=== PATIENT | male | born 1975 | race Two or more races ===

== ENCOUNTER 2024-07-02 15:56 | Emergency (ER) | payer OTHER ==
[~2024-07-02] VITALS: Ht 177.8 cm; Wt 86.0 kg
--- NOTE | 2024-07-02 16:27 | DVH ---
Exam: CT CT AB PEL WO CON-NO ORAL OR IV History: cp Comparison Study: None Technique: Multidetector spiral CT of the abdomen was performed from lung bases to pubic symphysis. Imaging was performed without IV contrast. Axial, coronal and sagittal multiplanar reformats were ob tained from the axial data set by the technologist. Radiation Dose : 1. Abdomen/Pelvis: CTDIvol 13.6 mGy, DLP 742.3 mGy*cm. Findings: Evaluation of solid organs is limited due to lack of intravenous contrast use. Lung Bases: No acute or significant lung base finding. Normal heart size. No pleural or pericardial effusion. Liver: The liver is normal in size. No focal lesions. Gallbladder and Biliary Tree: Unremarkable Spleen: Unremarkable Pancreas: The pancreas is grossly normal in appearance. Adrenal Glands: Unremarkable Kidneys: Kidneys are grossly normal without calculi or hydronephrosis. Bladder: Grossly unremarkable for degree of distention. Bowel: The stomach is grossly normal in appearance. Small bowel and colon are normal in caliber and d istribution. Normal appendix is visualized in the right lower quadrant without findings of appendici tis. Ascites: Absent Lymphadenopathy: No mesenteric, retroperitoneal or periportal lymphadenopathy. Abdominal Wall and Mesentery: Unremarkable. Vasculature: The visualized abdominal aorta is normal in size and caliber. Evaluation of abdominal a nd pelvic vessels is limited due to lack of intravenous contrast. Pelvic Organs: Unremarkable Musculoskeletal: No aggressive focal bony lesions, acute fractures or dislocation. IMPRESSION: 1. No acute abdominal or pelvic findings. Radiation optimization: All CT scans at this facility use at least one of these dose optimization talha hniques: automated exposure control mA and/or kV adjustment per patient size (includes targeted exam s where dose is matched to clinical indication) or iterative reconstruction.
--- NOTE | 2024-07-02 16:51 | DVH ---
CHEST RADIOGRAPH Indication: cp Technique: Single frontal view of the chest was obtained COMPARISON: None FINDINGS: Lines and Tubes: None Lungs: Clear Pleura: No effusion. No pneumothorax. Cardiomediastinal contours: Unremarkable Bones: Unremarkable IMPRESSION: 1. No acute disease.
[2024-07-02 17:18] LABS: Basophils # (auto) 0 10 ^3/uL (0-0.2); Basophils % (auto) 0.9 % (0.0-2.0); Eosinophils # (auto) 0.2 10 ^3/uL (0-0.8); Eosinophils % (auto) 4.2 % (0.0-7.0); Hematocrit 43.6 % (41.0-53.0); Hemoglobin 14.9 g/dL (13.5-17.5); Lymphocytes # (auto) 1.8 10 ^3/uL (0.4-5.4); Lymphocytes % (auto) 37.5 % (10.0-50.0); Mean Corpuscular Hemoglobin 33.3 pg (28.0-32.0); Mean Corpuscular Hgb Conc. 34.1 g/dL (32.0-36.0); Mean Corpuscular Volume 97.5 fL (80.0-100.0); Monocytes # (auto) 0.4 10 ^3/uL (0-1.3); Monocytes % (auto) 7.6 % (0.0-12.0); Neutrophils # (auto) 2.3 10 ^3/uL (1.6-8.6); Neutrophils % (auto) 49.8 % (37.0-80.0); Nucleated Red Blood Cells % 0.1 %; Platelet Count (auto) 200 10^3/uL (140-450); Red Blood Cells 4.47 10^6/uL (4.5-5.90); Red Cell Distribution Width 13.6 % (11.8-14.3); White Blood Cell 4.7 10^3/uL (4.4-10.8)
[2024-07-02 17:37] LABS: Alanine Aminotransferase 15 U/L (7-40); Albumin 4.7 g/dL (3.2-4.8); Alkaline Phosphatase 58 U/L (46-116); Anion Gap 6 (5-15); Blood Urea Nitrogen 10 mg/dL (9-23); Calcium 9.7 mg/dL (8.7-10.4); Carbon Dioxide 27 mmol/L (20-31); Glucose 88 mg/dL (74-106); Lipase 46 U/L (12-53); Potassium 4.3 mmol/L (3.5-5.1); Sodium 140 mmol/L (136-145)
[2024-07-02 17:38] LABS: Urine Bacteria None Seen /hpf (None Seen)
[2024-07-02 17:38] LABS: Bilirubin, Total 0.4 mg/dL (0.2-1.0)
[2024-07-02 17:50] LABS: Aspartate Aminotransferase 13 U/L (13-40); Chloride 107 mmol/L (98-107)
[2024-07-02 18:02] LABS: Urine Blood Negative /uL (Negative); Urine Clarity Clear (Clear); Urine Color Light-Yellow (Yellow); Urine Mucus FEW (None Seen); Urine Protein, UAD Negative (Negative); Urine Squamous Epithelial Cell None Seen /hpf (<5); Urine Urobilinogen Normal (Negative); Urine WBC 1 /hpf (0 - 3)
--- NOTE | 2024-07-02 18:32 | ED.PDOC ---
History of Present Illness HPI Comments 49 y/o M, with a Hx of HTN, presents with c/o chest, groin, testicular, and abdominal pain, today. Patient endorses on unprovoked onset of intermittent, tightening and pressure-like sternal chest pain for the past 2x days. Patient also reports additional onset, yesterday, or bilateral groin pain that radiates to his testicles and lower abdomen area. He denies any recent trauma, strenuous activities, sick contact, or other additional relevant or pertinent Hx. Patient reports no shortness of breath, palpitations, urinary symptoms, nausea, vomiting, or other associated symptoms or modifiers at this time. Chief Complaint: Chest Pain Time Seen by MD: 16:00 Primary Care Provider: [facility] Reviewed Notes: Nurses Notes, Medications, Allergies Allergies: Coded Allergies: NO KNOWN ALLERGIES (Unverified , 07/02/24) Information Source: Patient Mode of Arrival: Ambulatory Severity: Moderate Timing: Days Duration: Since onset Prehospital treatment: None Past Medical History PAST MEDICAL HISTORY: HTN Surgical History: Denies all surgeries Family History Family History: Unknown Social History Smoker: Non-Smoker Alcohol: Denies ETOH Use Drugs: Marijuana Lives In: Home Cardiovascular: reports: chest pain Gastrointestinal: reports: abdominal pain Genitourinary: reports: pain (groin), testicle pain Physical Exam General Appearance: No Apparent Distress, Normal HEENT: Normal ENT Inspection, Pharynx Normal, TMs Normal Neck: Full Range of Motion, Non-Tender, Normal, Normal Inspection Respiratory: Chest Non-Tender, Lungs Clear, No Accessory Muscle Use, No Respiratory Distress, Normal Breath Sounds Cardiovascular: No Edema, No JVD, No Murmur, No Gallop, Normal Peripheral Pulses, Regular Rate/Rhythm Breast Exam: Deferred Gastrointestinal: No Organomegaly, Non Tender, No Pulsatile Mass, Normal Bowel Sounds, Soft Genitalia: Deferred Pelvic: Deferred Rectal: Deferred Extremities: No calf tenderness, Normal capillary refill, Normal inspection, Normal range of motion, Non-tender, No pedal edema Musculoskeletal : Apperance: Normal Neurologic: Alert, manager social II-XII nml as Tested, No Motor Deficits, Normal Affect, Normal Mood, No Sensory Deficits Cerebellar Function: Normal Reflexes: Normal Skin: Dry, Normal Color, Warm Lymphatic: No Adenopathy Was a procedure done? Was a procedure done?: No Differential Dx Considerations may include: ID, ACS, costochondritis, pericarditis, pleural effusion, musculoskeletal pain, hydrocele, variocele X-Ray, Labs, Meds, VS Vital Signs Date Time Temp Pulse Resp B/P (MAP) Pulse Ox O2 Delivery O2 Flow Rate FiO2 07/02/24 16:00 98.0 69 18 171/106 (127) 97 178/104 (128) Lab Test 07/02/24 16:51 07/02/24 16:08 Range/Units White Blood Count 4.7 4.4-10.8 10^3/uL Red Blood Count 4.47 L 4.5-5.90 10^6/uL Hemoglobin 14.9 13.5-17.5 g/dL Hematocrit 43.6 41.0-53.0 % Mean Corpuscular Volume 97.5 80.0-100.0 fL Mean Corpuscular Hemoglobin 33.3 H 28.0-32.0 pg Mean Corpuscular Hemoglobin Concent 34.1 32.0-36.0 g/dL Red Cell Distribution Width 13.6 11.8-14.3 % Platelet Count 200 140-450 10^3/uL Mean Platelet Volume 8.8 6.9-10.8 fL Neutrophils (%) (Auto) 49.8 37.0-80.0 % Lymphocytes (%) (Auto) 37.5 10.0-50.0 % Monocytes (%) (Auto) 7.6 0.0-12.0 % Eosinophils (%) (Auto) 4.2 0.0-7.0 % Basophils (%) (Auto) 0.9 0.0-2.0 % Neutrophils # (Auto) 2.3 1.6-8.6 10 ^3/uL Lymphocytes # (Auto) 1.8 0.4-5.4 10 ^3/uL Monocytes # (Auto) 0.4 0-1.3 10 ^3/uL Eosinophils # (Auto) 0.2 0-0.8 10 ^3/uL Basophils # (Auto) 0 0-0.2 10 ^3/uL Nucleated Red Blood Cells 0.1 % Sodium Level 140 136-145 mmol/L Potassium Level 4.3 3.5-5.1 mmol/L Chloride Level 107 98-107 mmol/L Carbon Dioxide Level 27 20-31 mmol/L Anion Gap 6 5-15 Blood Urea Nitrogen 10 9-23 mg/dL Creatinine 0.83 0.700-1.30 mg/dL Glomerular Filtration Rate Calc 109 >90 mL/min BUN/Creatinine Ratio 12.0 10.0-20.0 Serum Glucose 88 74-106 mg/dL Calcium Level 9.7 8.7-10.4 mg/dL Total Bilirubin 0.4 0.2-1.0 mg/dL Aspartate Amino Transferase (AST) 13 13-40 U/L Alanine Aminotransferase (ALT) 15 7-40 U/L Alkaline Phosphatase 58 46-116 U/L Troponin I High Sensitivity 3 L </=54 ng/L B-Type Natriuretic Peptide 26.29 0-100 pg/mL Total Protein 7.0 5.7-8.2 g/dL Albumin 4.7 3.2-4.8 g/dL Lipase 46 12-53 U/L Urine Color Light-yellow Yellow Urine Clarity Clear Clear Urine pH 6.0 5.0-9.0 Urine Specific [place] 1.010 1.001-1.035 Urine Protein Negative Negative Urine Ketones Negative Negative Urine Blood Negative Negative /uL Urine Nitrite Negative Negative Urine Bilirubin Negative Negative Urine Urobilinogen Normal Negative mg/dL Urine Leukocyte Esterase Negative Negative /uL Urine RBC 1 0 - 3 /hpf Urine WBC 1 0 - 3 /hpf Urine Squamous Epithelial Cells None seen <5 /hpf Urine Bacteria None seen None Seen /hpf Urine Mucus Few None Seen Urine Glucose Normal Normal mg/dL [place] [id number] DIAGNOSTIC IMAGING Diagnostic Imaging Report : [id number] Signed PATIENT: PENG FINNEY ACCT: [id number] UNIT: [id number] : 1975 LOC: ER ROOM / BED: / AGE / SEX: 49 / M ADM STATUS: REG ER SERVICE [id number] ORDERING PHYSICIAN: ROSELIA ZAVALA PROCEDURE(s): CXR1 - CHEST XRAY 1 VIEW REASON: cp ORDER NUMBER(s): [id number], ACCESSION NUMBER(s): [id number] CHEST RADIOGRAPH Indication: cp Technique: Single frontal view of the chest was obtained COMPARISON: None FINDINGS: Lines and Tubes: None Lungs: Clear Pleura: No effusion. No pneumothorax. Cardiomediastinal contours: Unremarkable Bones: Unremarkable IMPRESSION: 1. No acute disease. ATED BY: GUERITA NAJERA MD DICTATED DATE/TIME: 07/02/241647 SIGNED BY: GUERITA NAJERA MD SIGNED DATE/TIME: 07/02/241647 CC: [place] [id number] Ph: [phone] DIAGNOSTIC IMAGING Diagnostic Imaging Report : [id number] Signed PATIENT: PENG FINNEY ACCT: [id number] UNIT: [id number] : 1975 LOC: ER ROOM / BED: / AGE / SEX: 49 / M ADM STATUS: REG ER SERVICE 06 ORDERING PHYSICIAN: ROSELIA ZAVALA PROCEDURE(s): ABPL - CT AB PEL WO CON-NO ORAL OR IV REASON: cp ORDER NUMBER(s): [id number], ACCESSION NUMBER(s): [id number] Exam: CT CT AB PEL WO CON-NO ORAL OR IV History: cp Comparison Study: None Technique: Multidetector spiral CT of the abdomen was performed from lung bases to pubic symphysis. Imaging was performed without IV contrast. Axial, coronal and sagittal multiplanar reformats were obtained from the axial data set by the technologist. Radiation Dose : 1. Abdomen/Pelvis: CTDIvol 13.6 mGy, DLP 742.3 mGy*cm. Findings: Evaluation of solid organs is limited due to lack of intravenous contrast use. Lung Bases: No acute or significant lung base finding. Normal heart size. No pleural or pericardial effusion. Liver: The liver is normal in size. No focal lesions. Gallbladder and Biliary Tree: Unremarkable Spleen: Unremarkable Pancreas: The pancreas is grossly normal in appearance. Adrenal Glands: Unremarkable Kidneys: Kidneys are grossly normal without calculi or hydronephrosis. Bladder: Grossly unremarkable for degree of distention. Bowel: The stomach is grossly normal in appearance. Small bowel and colon are normal in caliber and distribution. Normal appendix is visualized in the right lower quadrant without findings of appendicitis. Ascites: Absent Lymphadenopathy: No mesenteric, retroperitoneal or periportal lymphadenopathy. Abdominal Wall and Mesentery: Unremarkable. Vasculature: The visualized abdominal aorta is normal in size and caliber. Evaluation of abdominal and pelvic vessels is limited due to lack of intravenous contrast. Pelvic Organs: Unremarkable Musculoskeletal: No aggressive focal bony lesions, acute fractures or dislocation. IMPRESSION: 1. No acute abdominal or pelvic findings. Radiation optimization: All CT scans at this facility use at least one of these dose optimization techniques: automated exposure control mA and/or kV adjustment per patient size (includes targeted exams where dose is matched to clinical indication) or iterative reconstruction. ATED BY: GUERITA NAJERA MD DICTATED DATE/TIME: 07/02/241624 SIGNED BY: GUERITA NAJERA MD SIGNED DATE/TIME: 07/02/241624 CC: X-Ray, Labs, Meds, VS Comment Imaging: X-rays and CT scans were reviewed and interpreted by this provider, imaging shows no fractures and no pathological disease. Pending radiology review. Laboratory: Labs reviewed and interpreted by this provider. No significant abnormalities noted. Patient has prior medical visits reviewed. Med reconciliation performed Vital signs reviewed Time of 1ST Reevaluation: 16:30 Reevaluation 1ST: Unchanged Patient Education/Counseling: Diagnosis, Treatment, Need For Follow Up (Patient advised to follow-up in the emergency room in the next 24 to 48 hours if symptoms do not improve. Advised follow-up with PCP in the next 3 to 5 days. Patient verbalized understanding. ) Family Education/Counseling: No Family Present Departure 1 Departure Time of Disposition: 18:54 Impression: Primary Impression: Musculoskeletal chest pain Additional Impression: Bilateral groin pain Disposition: 04 [facility] Condition: Fair e-Prescriptions Naproxen (NAPROSYN TABLET) 500 Mg Tb 1 TAB PO BID PRN, #60 TAB Prov: ROSELIA ZAVALA 07/02/24 Discharged With: Self Critical Care Note Critical Care Time?: No Stability Stability form required: No Heart Score Heart Score: Heart Score Response (Comments) Value History Slightly Suspicious 0 EKG Normal 0 Age 45-64 1 Risk Factors 1 or 2 risk factors 1 Troponin Normal limit 0 Total 2 I personally scribed for ROSELIA ZAVALA ([email or web address]) on 07/02/24 at 18:32. Electronically submitted by Zeeshan Jimenez ([email or web address]). ROSELIA ZAVALAP Jul 02, 2024 18:32
[2024-07-02] MEDS ORDERED: NAP500T PO (18:57)
[2024-07-02] MEDS: KETOROLAC TROMETH 30 MG/ML 1ML VIAL IM ONE (20:19)
[2024-07-02] MEDS: methylPREDNISolone SOD SUCC 125 MG/2 ML VL IM ONE (20:19)
[2024-07-02 20:22] VITALS: BP 161/101; PULSE 72; RESP 18; TEMP 98.2; O2SAT 96
== END 2024-07-02 20:29 | disposition home or self-care (01) ==
LOC: ER 15:56
DX: R07.89 Other chest pain (principal); I10 Essential (primary) hypertension; F12.10 Cannabis abuse, uncomplicated; R10.32 Left lower quadrant pain; R10.31 Right lower quadrant pain
CPT/HCPCS: 36415; 71045; 74176; 80053; 81001; 83690; 83880; 84484; 85025; 96372; 99285; J1885; J2919

== ENCOUNTER 2024-09-04 18:26 | Inpatient (IN) | payer OTHER ==
[~2024-09-04] VITALS: Ht 175.3 cm; Wt 84.5 kg
[~2024-09-04 18:26] MED LIST: NAP500T PO
--- NOTE | 2024-09-04 18:59 | ED.PDOC ---
GI ASSESSMENT HPI Comments 49 year old male presents to the ED with a chief complaint of abdominal pain onset today (09/04/24) around 12:00. Patient states he began experiencing epigastric pain that radiates top RUQ today around noon. Shortly after patient began experiencing several episodes of nausea/vomiting as well as 2 episodes of watery, brown bowel movements. Patient has not been able to eat due to symptoms. PMHx HTN. Denies chest pain, shortness of breath, fever, chills, dysuria. No other symptoms or modifying factors present at this time. Chief Complaint: Abdominal Pain Time Seen by MD: 18:45 Primary Care Provider: [place] Reviewed Notes: Medications, Allergies Allergies: Coded Allergies: NO KNOWN ALLERGIES (Unverified , 07/02/24) Home Meds Active Scripts Naproxen (NAPROSYN TABLET) 500 Mg Tb, 1 TAB PO BID PRN, #60 TAB Prov:ROSELIA ZAVALA 07/02/24 Information Source: Patient Mode of Arrival: Ambulatory Timing: Hours Duration: Since onset Prehospital treatment: None Quality: Aching Vomitus: Bilious Stool: Watery, Brown Severity: Moderate Recent: None Recent Hx of: None Pain Location: Epigastric, RUQ Modifying Factors: Nothing Associated sign and symptoms: Nausea, Vomiting, Diarrhea, Abdominal Pain Past Medical History PAST MEDICAL HISTORY: HTN Surgical History: Denies all surgeries Family History Family History: Unknown Social History Smoker: Non-Smoker Alcohol: Denies ETOH Use Drugs: Marijuana Lives In: Home Constitutional: denies: chills, diaphoresis, fatigue, fever, malaise, sweats, weakness, others EENTM: denies: blurred vision, double vision, ear bleeding, ear discharge, ear drainage, ear pain, ear ringing, eye pain, eye redness, hearing loss, mouth pain, mouth swelling, nasal discharge, nose bleeding, nose congestion, nose pain, photophobia, tearing, throat pain, throat swelling, voice changes, others Respiratory: denies: cough, hemoptysis, orthopnea, SOB at rest, shortness of breath, SOB with excertion, stridor, wheezing, others Cardiovascular: denies: chest pain, dizzy spells, diaphoresis, Dyspnea on exertion, edema, irregular heart beat, left arm pain, lightheadedness, palpitations, PND, syncope, others Gastrointestinal: reports: abdominal pain, diarrhea, nausea, poor appetite, vomiting; denies: abdomen distended, blood streaked bowels, constipated, dysphagia, difficulty swallowing, hematemesis, melena, poor fluid intake, rectal bleeding, rectal pain, others Genitourinary: denies: burning, dysuria, flank pain, frequency, hematuria, incontinence, penile discharge, penile sore, pain, testicle pain, testicle swelling, urgency, others Neurological: denies: dizziness, fainting, headache, left sided numbness, left sided weakness, numbness, paresthesia, pre-existing deficit, right sided numbness, right sided weakness, seizure, speech problems, tingling, tremors, weakness, others Musculoskeletal: denies: back pain, gout, joint pain, joint swelling, muscle pain, muscle stiffness, neck pain, others Integumetry: denies: bruises, change in color, change in hair/nails, dryness, laceration, lesions, lumps, rash, wounds, others Allergic/Immunocompromised: denies: Difficulty Healing, Frequent Infections, Hives, Itching, others Hematologic/Lymphatic: denies: anemia, blood clots, easy bleeding, easy bruising, swollen glands, others Endocrine: denies: excessive hunger, excessive sweating, excessive thirst, excessive urination, flushing, intolerance to cold, intolerance to heat, unexplained weight gain, unexplained weight loss, others Psychiatric: denies: anxiety, bipolar disorder, depression, hopeless, panic disorder, schizophrenia, sleepless, suicidal, others All Other Systems: Reviewed and Negative Physical Exam General Appearance: No Apparent Distress, Normal HEENT: Normal ENT Inspection, Pharynx Normal, TMs Normal Neck: Full Range of Motion, Non-Tender, Normal, Normal Inspection Respiratory: Chest Non-Tender, Lungs Clear, No Accessory Muscle Use, No Respiratory Distress, Normal Breath Sounds Cardiovascular: No Edema, No JVD, No Murmur, No Gallop, Normal Peripheral Pulses, Regular Rate/Rhythm Breast Exam: Deferred Gastrointestinal: Epigastric (tenderness ), RUQ (tenderness ), Tenderness (RUQ ) Genitalia: Deferred Pelvic: Deferred Rectal: Deferred Extremities: No calf tenderness, Normal capillary refill, Normal inspection, Normal range of motion, Non-tender, No pedal edema Musculoskeletal : Apperance: Normal Neurologic: Alert, shuttler II-XII nml as Tested, No Motor Deficits, Normal Affect, Normal Mood, No Sensory Deficits Cerebellar Function: Normal Reflexes: Normal Skin: Dry, Normal Color, Warm Lymphatic: No Adenopathy Was a procedure done? Was a procedure done?: No GI differential Dx Differential Diagnosis: Cholecystitis, Gastritis/PUD, Gastroenteritis, GI hemorrhage, Dehydration X-Ray, Labs, Meds, VS Vital Signs Date Time Temp Pulse Resp B/P (MAP) Pulse Ox O2 Delivery O2 Flow Rate FiO2 09/04/24 19:34 59 20 99 Room Air* 0 21 09/04/24 19:32 98.1 68 19 155/68 (97) 99 98.1 09/04/24 19:31 59 16 155/68 09/04/24 18:33 97.6 70 22 157/97 (117) 99 Lab Test 09/04/24 19:01 Range/Units White Blood Count 11.5 H 4.4-10.8 10^3/uL Red Blood Count 4.92 4.5-5.90 10^6/uL Hemoglobin 16.0 13.5-17.5 g/dL Hematocrit 47.1 41.0-53.0 % Mean Corpuscular Volume 95.7 80.0-100.0 fL Mean Corpuscular Hemoglobin 32.6 H 28.0-32.0 pg Mean Corpuscular Hemoglobin Concent 34.1 32.0-36.0 g/dL Red Cell Distribution Width 12.7 11.8-14.3 % Platelet Count 189 140-450 10^3/uL Mean Platelet Volume 8.8 6.9-10.8 fL Neutrophils (%) (Auto) 86.9 H 37.0-80.0 % Lymphocytes (%) (Auto) 7.1 L 10.0-50.0 % Monocytes (%) (Auto) 4.5 0.0-12.0 % Eosinophils (%) (Auto) 1.1 0.0-7.0 % Basophils (%) (Auto) 0.4 0.0-2.0 % Neutrophils # (Auto) 10.0 H 1.6-8.6 10 ^3/uL Lymphocytes # (Auto) 0.8 0.4-5.4 10 ^3/uL Monocytes # (Auto) 0.5 0-1.3 10 ^3/uL Eosinophils # (Auto) 0.1 0-0.8 10 ^3/uL Basophils # (Auto) 0 0-0.2 10 ^3/uL Nucleated Red Blood Cells 0.1 % Sodium Level 138 136-145 mmol/L Potassium Level 3.5 3.5-5.1 mmol/L Chloride Level 104 98-107 mmol/L Carbon Dioxide Level 25 20-31 mmol/L Anion Gap 9 5-15 Blood Urea Nitrogen 11 9-23 mg/dL Creatinine 0.89 0.700-1.30 mg/dL Glomerular Filtration Rate Calc 106 >90 mL/min BUN/Creatinine Ratio 12.4 10.0-20.0 Serum Glucose 121 H 74-106 mg/dL Calcium Level 10.3 8.7-10.4 mg/dL Total Bilirubin 1.3 H 0.2-1.0 mg/dL Aspartate Amino Transferase (AST) 15 13-40 U/L Alanine Aminotransferase (ALT) 18 7-40 U/L Alkaline Phosphatase 65 46-116 U/L Total Protein 7.4 5.7-8.2 g/dL Albumin 4.9 H 3.2-4.8 g/dL Lipase 59 H 12-53 U/L Current Medications Medications (Trade) Dose Ordered Sig/Ismael Route Start Time Stop Time Status Last Admin Sodium Chloride 1,000 ml @ 1,000 mls/hr Q1H ONCE IV 09/04/24 18:45 09/04/24 19:44 DC 09/04/24 19:31 Morphine Sulfate 4 mg ONCE ONCE IV 09/04/24 18:45 09/04/24 18:46 DC 09/04/24 19:31 Ondansetron HCl (Zofran) 4 mg ONCE ONCE IV 09/04/24 18:45 09/04/24 18:46 DC 09/04/24 19:[address] [address] Ph: [phone] DIAGNOSTIC IMAGING Diagnostic Imaging Report : [id number] Signed PATIENT: BANDAR FINNEYT: [id number] UNIT: [id number] : 1975 LOC: ER ROOM / BED: / AGE / SEX: 49 / M ADM STATUS: REG ER SERVICE [id number] ORDERING PHYSICIAN: EJ DAVIS MD PROCEDURE(s): GBUS - GALLBLADDER REASON: RUQ ABD PAIN ORDER NUMBER(s): [id number], ACCESSION NUMBER(s): [id number] INDICATION: RUQ ABD PAIN TECHNIQUE: Multiple real-time sonographic images of the abdomen were obtained. COMPARISON: None FINDINGS: The liver is homogenous in echogenicity. The liver measures 15.7 cm. No intrahepatic biliary ductal dilatation is noted. The gallbladder wall measures 0.2 cm and is unremarkable. No gallstones or sludge is seen. The common duct measures 0.35 cm and is unremarkable. No pericholecystic fluid is noted. Negative ultrasound Day's sign The right kidney measures 9.5 cm. No hydronephrosis. The pancreas is not well visualized due to obscuration from bowel gas. IMPRESSION: 1. Liver measures 15.7 cm. 2. No gallstones or dilated ducts. The gallbladder shows a negative ultrasound Day's sign ATED BY: KRISTINE PELAEZ Jr., DO DICTATED DATE/TIME: 09/04/241913 SIGNED BY: KRISTINE PELAEZ Jr., SIGNED DATE/TIME: 09/04/241913 CC: Time of 1ST Reevaluation: 19:15 Reevaluation 1ST: Unchanged Patient Education/Counseling: Diagnosis, Treatment, Prognosis Family Education/Counseling: No Family Present Additional Information The following tests were ordered, and results were reviewed by me: CBC, CMP, LIPASE, US GALLBLADDER I reviewed and agreed with the following test results read by other providers: US GALLBLADDER I discussed treatment and results with medical personnel and: patient Departure 1 Departure Time of Disposition: 21:15 (Patient presented with abdominal pain that was concerning for possible appendicits, gastritis, cholecystitis, colitis, gastroenteritis, sbo, or orther possible surgical emergency. Data: 1. I ordered and reviewed the result of at least 3 labs including a CBC, BMP, and Urinalysis. 2. I independently interpreted the following tests: Ultrasound is be nign.Risk:This patient has a high risk of morbidity due to further diagnostic testing or treatment and may suffer from an acute abdominal process disorder. Workup reveals intractable abdominal pain concern for gastritis and patient should be admitted for further workup. and possible expert consultation. ) Impression: Primary Impression: Intractable abdominal pain Additional Impression: Gastritis Qualified Codes: K29.00 - Acute gastritis without bleeding Disposition: ADMITTED INPATIENT Admit to: Med Surg Condition: Serious Critical Care Note Critical Care Time?: Yes Critical care comment: Intractable abdominal pain Authorized and Performed by: Ej Davis MD Total critical care time: Approximately 36 minutes Due to a high probability of clinically significant, life threatening d eterioration, the patient required my highest level of preparedness to intervene emergently and I personally spent this critical care time directly and personally managing the patient. This critical care time included obtaining a history; examining the patient; pulse oximetry; ordering and review of studies; arranging urgent treatment with development of a management plan; evaluation of patient's response to treatment; frequent reassessment; and, discussions with other providers. This critical care time was performed to assess and manage the high probability of imminent, life-threatening deterioration that could result in multi-organ failure. It was exclusive of separately billable procedures and treating other patients and teaching time. Please see my other sections and the rest of the note for further information on patient assessment and treatment. Stability Stability form required: No I personally scribed for EJ DAVIS MD ([email or web address]) on 09/04/24 at 18:58. Electronically submitted by Lilo Hernandez ([email or web address]). I personally scribed for EJ DAVIS MD ([email or web address]) on 09/04/24 at 19:07. Electronically submitted by Lilo Hernandez ([email or web address]). I personally scribed for EJ DAVIS MD ([email or web address]) on 09/04/24 at 19:18. Electronically submitted by Lilo Hernandez ([email or web address]). EJ DAVIS MD Sep 04, 2024 18:58
--- NOTE | 2024-09-04 19:17 | DVH ---
INDICATION: RUQ ABD PAIN TECHNIQUE: Multiple real-time sonographic images of the abdomen were obtained. COMPARISON: None FINDINGS: The liver is homogenous in echogenicity. The liver measures 15.7 cm. No intrahepatic bilia ry ductal dilatation is noted. The gallbladder wall measures 0.2 cm and is unremarkable. No gallstones or sludge is seen. The com mon duct measures 0.35 cm and is unremarkable. No pericholecystic fluid is noted. Negative ultrasoun d Day's sign The right kidney measures 9.5 cm. No hydronephrosis. The pancreas is not well visualized due to obscuration from bowel gas. IMPRESSION: 1. Liver measures 15.7 cm. 2. No gallstones or dilated ducts. The gallbladder shows a negative ultrasound Day's sign
[2024-09-04 19:30] LABS: Basophils # (auto) 0 10 ^3/uL (0-0.2); Basophils % (auto) 0.4 % (0.0-2.0); Eosinophils # (auto) 0.1 10 ^3/uL (0-0.8); Eosinophils % (auto) 1.1 % (0.0-7.0); Hematocrit 47.1 % (41.0-53.0); Lymphocytes # (auto) 0.8 10 ^3/uL (0.4-5.4); Lymphocytes % (auto) 7.1 % (10.0-50.0); Mean Corpuscular Hemoglobin 32.6 pg (28.0-32.0); Mean Corpuscular Hgb Conc. 34.1 g/dL (32.0-36.0); Mean Corpuscular Volume 95.7 fL (80.0-100.0); Monocytes # (auto) 0.5 10 ^3/uL (0-1.3); Monocytes % (auto) 4.5 % (0.0-12.0); Neutrophils % (auto) 86.9 % (37.0-80.0); Nucleated Red Blood Cells % 0.1 %; Platelet Count (auto) 189 10^3/uL (140-450); Red Blood Cells 4.92 10^6/uL (4.5-5.90); Red Cell Distribution Width 12.7 % (11.8-14.3); White Blood Cell 11.5 10^3/uL (4.4-10.8)
[2024-09-04] MEDS: ONDANSETRON HCL 4 MG/2 ML VIAL IV ONE (19:30)
[2024-09-04] MEDS: MORPHINE SULFATE 4 MG/ML SYR/VIAL IV ONE (19:31)
[2024-09-04] MEDS: SODIUM CHLORIDE 0.9% 1,000 ML IV ONE (19:31)
[2024-09-04 19:34] VITALS: PULSE 59; RESP 20; O2SAT 99
[2024-09-04 19:54] LABS: Alanine Aminotransferase 18 U/L (7-40); Alkaline Phosphatase 65 U/L (46-116); Anion Gap 9 (5-15); Aspartate Aminotransferase 15 U/L (13-40); BUN/Creatinine Ratio 12.4 (10.0-20.0); Blood Urea Nitrogen 11 mg/dL (9-23); Calcium 10.3 mg/dL (8.7-10.4); Carbon Dioxide 25 mmol/L (20-31); Chloride 104 mmol/L (98-107); Sodium 138 mmol/L (136-145); Total Protein 7.4 g/dL (5.7-8.2)
[2024-09-04 20:09] LABS: Albumin 4.9 g/dL (3.2-4.8); Bilirubin, Total 1.3 mg/dL (0.2-1.0); Glucose 121 mg/dL (74-106); Lipase 59 U/L (12-53); Potassium 3.5 mmol/L (3.5-5.1)
--- NOTE | 2024-09-04 20:42 | DVH ---
CHEST RADIOGRAPH Indication: epigastric pain Technique: Single frontal view of the chest was obtained COMPARISON: XY CHEST XRAY 1 VIEW on DOS: 07/02/24 FINDINGS: Lines and Tubes: None Lungs: Clear Pleura: No effusion. No pneumothorax. Cardiomediastinal contours: Unremarkable Bones: Unremarkable IMPRESSION: No abnormality.
[2024-09-04] MEDS ORDERED: ONDANSETRON HCL 4 MG/2 ML VIAL IV PRN (22:15)
[2024-09-04 22:26] LABS: Urine Bacteria None Seen /hpf (None Seen)
[2024-09-04] MEDS ORDERED: KETOROLAC TROMETH 30 MG/ML 1ML VIAL IV PRN (22:30)
[2024-09-04 22:35] LABS: Triglycerides 71 mg/dL (< 150)
--- NOTE | 2024-09-04 22:35 | DVHHPRES ---
History of Present Illness Resident Creating Document: HAMZAH TAMAYO History of Present Illness This is a 49-year-old male with past medical history of hypertension who presented to the ED with chief complaint of acute abdominal pain. The patient states the pain started today at 12:30 p.m. He locates the pain in the epigastric region and right upper quadrant, the patient described the pain as a sharp pain rated as 10/10 on the pain scale which is intermittent in nature that comes and goes. The patient reports chills, cold sweats, shakiness and 3-4 episodes of diarrhea that started today. Patient denied fever, nausea or vomiting. The patient also reports a similar episode one month ago. Initial labs showed a WBC of 11.5, stable hemoglobin is 16.0, BNP was grossly unremarkable. Chest x-ray was grossly clear without evidence of clear consolidations at this time. Gallbladder ultrasound showed liver measuring 15.7 cm with no gallstones or dilated ducts. Gallbladder showed a negative ultrasound Day sign. We will order a CT scan of the abdomen and pelvis, per the patient on IV fluids, IV pantoprazole and admit the patient for further assessment and management. Cardiovascular: HTN Family History: None Smoke: No ALCOHOL: occassional Drugs: None Lives: with Family Domestic Violence: Neg Review of Systems Constitutional: Yes: Chills, Sweats; No: Fever, Weakness, Malaise, Other Eyes: No: Pain, Vision change, Conjunctivae inflammation, Eyelid inflammation, Other, Redness ENT: No: Ear pain, Ear discharge, Nose pain, Nose discharge, Nose congestion, M outh pain, Mouth swelling, Throat pain, Throat swelling, Other Respiratory: No: Cough, Dry, Shortness of breath, SOB with excertion, Wheezing, Hemoptysis, Pleuritic Pain, Sputum, Wheezing, Other Cardiovascular: No: Chest Pain, Palpitations, Orthopnea, Paroxysmal Noc. Dyspnea, Edema, Lt Headedness, Other Gastrointestinal: Abdominal Pain, Diarrhea; No: Nausea, Vomiting, Constipation, Melena, Hematochezia, Other Genitourinary: No Dysuria, No Frequency, No Incontinence, No Hematuria, No Retention, No Other Musculoskeletal: No: other, neck pain, shoulder pain, arm pain, back pain, hand pain, leg pain, foot pain Skin: No: Rash, Lesions, Jaundice, Bruising, Other Neurological: No: Weakness, Numbness, Incoordination, Change in speech, Confusion, Seizures, Other Allergies: Coded Allergies: NO KNOWN ALLERGIES (Unverified , 07/02/24) Exam Vital Signs Vital Signs Date Time Temp Pulse Resp B/P (MAP) Pulse Ox O2 Delivery O2 Flow Rate FiO2 09/04/24 19:34 59 20 99 Room Air* 0 21 09/04/24 19:32 98.1 155/68 (97) 98.1 General Appearance: Alert, Oriented X3, Cooperative, No acute distress HEENT: Atraumatic, PERRLA, EOMI, Mucous membr. moist/pink Respiratory: Clear to auscultation, Normal air movement Cardiovascular: Regular rate, Normal S1, Normal S2, No murmurs Abdominal: Normal bowel sounds, Soft, No hepatospenomegaly, No masses, Other (There is tenderness to palpation at the epigastric region and right upper quadrant) Extremities: No clubbing, No cyanosis, No edema, Normal pulses, No tenderness/ swelling Skin: No rashes, No breakdown, No significant lesion Neuro: Normal gait, Normal speech, Strength at 5/5 X4 ext, Normal tone, Sensation intact, Cranial nerves 3-12 NL, Reflexes 2+ Psych/Mental Status: Mental status NL, Mood NL Labs/Xrays Labs Test 09/04/24 19:01 Range/Units White Blood Count 11.5 H 4.4-10.8 10^3/uL Red Blood Count 4.92 4.5-5.90 10^6/uL Hemoglobin 16.0 13.5-17.5 g/dL Hematocrit 47.1 41.0-53.0 % Mean Corpuscular Volume 95.7 80.0-100.0 fL Mean Corpuscular Hemoglobin 32.6 H 28.0-32.0 pg Mean Corpuscular Hemoglobin Concent 34.1 32.0-36.0 g/dL Red Cell Distribution Width 12.7 11.8-14.3 % Platelet Count 189 140-450 10^3/uL Mean Platelet Volume 8.8 6.9-10.8 fL Neutrophils (%) (Auto) 86.9 H 37.0-80.0 % Lymphocytes (%) (Auto) 7.1 L 10.0-50.0 % Monocytes (%) (Auto) 4.5 0.0-12.0 % Eosinophils (%) (Auto) 1.1 0.0-7.0 % Basophils (%) (Auto) 0.4 0.0-2.0 % Neutrophils # (Auto) 10.0 H 1.6-8.6 10 ^3/uL Lymphocytes # (Auto) 0.8 0.4-5.4 10 ^3/uL Monocytes # (Auto) 0.5 0-1.3 10 ^3/uL Eosinophils # (Auto) 0.1 0-0.8 10 ^3/uL Basophils # (Auto) 0 0-0.2 10 ^3/uL Nucleated Red Blood Cells 0.1 % Sodium Level 138 136-145 mmol/L Potassium Level 3.5 3.5-5.1 mmol/L Chloride Level 104 98-107 mmol/L Carbon Dioxide Level 25 20-31 mmol/L Anion Gap 9 5-15 Blood Urea Nitrogen 11 9-23 mg/dL Creatinine 0.89 0.700-1.30 mg/dL Glomerular Filtration Rate Calc 106 >90 mL/min BUN/Creatinine Ratio 12.4 10.0-20.0 Serum Glucose 121 H 74-106 mg/dL Calcium Level 10.3 8.7-10.4 mg/dL Total Bilirubin 1.3 H 0.2-1.0 mg/dL Aspartate Amino Transferase (AST) 15 13-40 U/L Alanine Aminotransferase (ALT) 18 7-40 U/L Alkaline Phosphatase 65 46-116 U/L Total Protein 7.4 5.7-8.2 g/dL Albumin 4.9 H 3.2-4.8 g/dL Lipase 59 H 12-53 U/L Assessment/Plan Assessment/Plan Assessment/plan Acute abdominal pain likely due to infectious colitis Possible gastroenteritis R/O acute pancreatitis R/O PUD R/O Colitis Ruled out cholecystitis/cholelithiasis -initial gallbladder ultrasound showed no gallstones or dilated ducts with negative ultrasound Day sign. -Lipase was 59 -a total of 2 L of fluids were given -Start IV ciprofloxacin -Start IV metronidazole -IV fluids at 75cc/hr 0.9%NS -IV pantoprazole 40mg IV daily -Ordered CT abd/pelvis -Ordered EKG -acetaminophen 650 mg p.r.n., ketorolac 50 mg IV p.r.n. q.6 for pain modulation Acute diarrhea -3-4 episodes of watery diarrhea -ordered stool WBC, bacterial culture, C diff -IV hydration -No hematochezia Primary hypertension -Restart amlodipine 10mg daily -Monitor BP Hyperlipidemia -Lipid panel showed total chol 208, LDL 145 -ASCVD score <4% no need of statins at this time Goals of care discussed with the patient at bedside for >35min, FULL CODE Plan discussed with Dr. Vail Plan discussed with: Patient My Orders Orders - HAMZAH TAMAYO Procedure Category Date Status Time Admit ADMIT 09/04/24 Transmitted 22:03 Code Status CODE 09/04/24 Transmitted 22:03 Vital Signs BANNER 09/04/24 Transmitted 22:03 Review Orders With LOU 09/04/24 Transmitted Adm. 22:03 Encourage Activity As BANNER 09/04/24 Transmitted Tolerate 22:03 Npo (Nothing By DIET 09/05/24 Transmitted Mouth) Diet Breakfast Acetaminophen Tablet PHA 09/04/24 Transmitted (Tylenol Tablet) 22:15 Notify Of Changes BANNER 09/04/24 Transmitted From Base 22:03 Advance Directive BANNER 09/04/24 Transmitted 22:03 Ct Ab Pel Wo Con-No CT 09/04/24 Logged Oral Or Iv 22:03 Urinalysis LAB 09/04/24 Transmitted 22:03 Lipid Panel LAB 09/04/24 Transmitted 22:03 Patient Condition ORDERS 09/04/24 Transmitted 22:03 Allergies LOU 09/04/24 Transmitted 22:03 Ondansetron Hcl PHA 09/04/24 Transmitted (Zofran) 22:15 Drug Screen LAB 09/04/24 Transmitted 22:03 Hemoglobin A1c LAB 09/04/24 Transmitted 22:03 Date of Service: Sep 04, 2024 Billing Provider: ROXY VAIL MD Common Visit Codes: 51042-[id number] INP/OBS CARE (HIGH) Secondary Visit Codes: 64135-[id number] CARE PLAN 30 MINUTES HAMZAH TAMAYO RESIDENT Sep 04, 2024 22:35 ROXY VAIL MD Sep 05, 2024 18:33
[2024-09-04 22:37] LABS: HDL Cholesterol 55 mg/dL (40-59)
--- NOTE | 2024-09-04 22:41 | DVH ---
Exam: CT CT AB PEL WO CON-NO ORAL OR IV History: Acute abdominal pain Comparison Study: CT CT AB PEL WO CON-NO ORAL OR IV on DOS: 07/02/24 Technique: Multidetector spiral CT of the abdomen was performed from lung bases to pubic symphysis. Imaging was performed without IV contrast. Axial, coronal and sagittal multiplanar reformats were ob tained from the axial data set by the technologist. Radiation Dose : 1. Abdomen/Pelvis: CTDIvol 8.21 mGy, DLP 444.43 mGy*cm. Findings: Evaluation of solid organs is limited due to lack of intravenous contrast use. Lung Bases: No acute or significant lung base finding. Normal heart size. No pleural or pericardial effusion. Liver: The liver is normal in size. No focal lesions. Gallbladder and Biliary Tree: Unremarkable Spleen: Unremarkable Pancreas: The pancreas is grossly normal in appearance. Adrenal Glands: Unremarkable Kidneys: Kidneys are grossly normal without calculi or hydronephrosis. Bladder: Grossly unremarkable for degree of distention. Bowel: The stomach is grossly normal in appearance. Infectious / inflammatory colitis involving the s igmoid colon . The appendix is not visualized; however, no secondary findings of acute appendicitis i dentified. Ascites: Absent Lymphadenopathy: No mesenteric, retroperitoneal or periportal lymphadenopathy. Abdominal Wall and Mesentery: Unremarkable. Vasculature: The visualized abdominal aorta is normal in size and caliber. Evaluation of abdominal a nd pelvic vessels is limited due to lack of intravenous contrast. Pelvic Organs: Unremarkable Musculoskeletal: No aggressive focal bony lesions, acute fractures or dislocation. IMPRESSION: 1. Infectious / inflammatory colitis involving the sigmoid colon . Radiation optimization: All CT scans at this facility use at least one of these dose optimization talha hniques: automated exposure control mA and/or kV adjustment per patient size (includes targeted exam s where dose is matched to clinical indication) or iterative reconstruction.
[2024-09-04 22:47] LABS: Cholesterol 208 mg/dL (< 200); LDL Cholesterol 145 mg/dL (< 100)
[2024-09-04 22:53] LABS: Urine Blood Negative /uL (Negative); Urine Clarity Clear (Clear); Urine Color Light-Yellow (Yellow); Urine Mucus FEW (None Seen); Urine Protein, UAD Negative (Negative); Urine Specific Gravity 1.024 (1.001-1.035); Urine Squamous Epithelial Cell None Seen /hpf (<5); Urine Urobilinogen Normal (Negative); Urine WBC 1 /HPF (0-3); Urine pH 5.5 (5.0-9.0)
[2024-09-04 23:08] LABS: Cannabinoid Screen, Urine Pos (NEGATIVE); Opiate Scree,Urine Pos (NEGATIVE)
[2024-09-04 23:09] LABS: Amphetamine Screen, Urine Neg (NEGATIVE); Barbiturate Scree,Urine Neg (NEGATIVE); Benzodiazephine Screen, Urine Neg (NEGATIVE); Cocaine Screen, Urine Neg (NEGATIVE); Phencyclidine Screen, Urine Neg (NEGATIVE)
[2024-09-05 03:43] VITALS: BP 138/87; PULSE 70; RESP 18; TEMP 99; O2SAT 99
[2024-09-05] MEDS: ONDANSETRON HCL 4 MG/2 ML VIAL IV ONE (03:52)
[2024-09-05] MEDS: PANTOPRAZOLE 40 MG/10 ML VIAL INJ IV ONE (03:52)
[2024-09-05] MEDS: MORPHINE SULFATE 4 MG/ML SYR/VIAL IV ONE (04:00)
[2024-09-05] MEDS: CIPROFLOXACIN 400MG/200ML 200 ML IV SCH (04:13)
[2024-09-05 05:00] VITALS: BP 155/84; PULSE 92; RESP 20; TEMP 99.5; O2SAT 98
[2024-09-05] MEDS: metroNIDAZOLE 500MG/100ML 100 ML IV SCH (05:23)
[2024-09-05] MEDS: ACETAMINOPHEN 325 MG TAB PO PRN (05:30)
[2024-09-05] MEDS: amLODIPine BESYLATE 5 MG TAB PO SCH (06:25)
[2024-09-05] MEDS: SODIUM CHLORIDE 0.9% 1,000 ML IV ONE ×2 (06:26→06:32)
[2024-09-05 07:42] LABS: Alanine Aminotransferase 14 U/L (7-40); Albumin 4.1 g/dL (3.2-4.8); Alkaline Phosphatase 51 U/L (46-116); Anion Gap 10 (5-15); Calcium 9.2 mg/dL (8.7-10.4); Carbon Dioxide 24 mmol/L (20-31); Chloride 105 mmol/L (98-107); Sodium 139 mmol/L (136-145); Total Protein 6.3 g/dL (5.7-8.2)
[2024-09-05 07:44] LABS: Aspartate Aminotransferase 13 U/L (13-40); Blood Urea Nitrogen 9 mg/dL (9-23); Glucose 109 mg/dL (74-106); Potassium 3.3 mmol/L (3.5-5.1)
[2024-09-05 08:18] LABS: Basophils # (auto) 0 10 ^3/uL (0-0.2); Basophils % (auto) 0.1 % (0.0-2.0); Eosinophils # (auto) 0 10 ^3/uL (0-0.8); Eosinophils % (auto) 0.1 % (0.0-7.0); Hematocrit 39.7 % (41.0-53.0); Hemoglobin 14.2 g/dL (13.5-17.5); Lymphocytes # (auto) 0.4 10 ^3/uL (0.4-5.4); Lymphocytes % (auto) 4.9 % (10.0-50.0); Mean Corpuscular Hgb Conc. 35.7 g/dL (32.0-36.0); Mean Corpuscular Volume 95.2 fL (80.0-100.0); Monocytes # (auto) 0.3 10 ^3/uL (0-1.3); Neutrophils # (auto) 7.5 10 ^3/uL (1.6-8.6); Neutrophils % (auto) 90.9 % (37.0-80.0); Platelet Count (auto) 160 10^3/uL (140-450); Red Blood Cells 4.17 10^6/uL (4.5-5.90); Red Cell Distribution Width 12.8 % (11.8-14.3); White Blood Cell 8.3 10^3/uL (4.4-10.8)
[2024-09-05] MEDS: D5W/SOD CHL 0.45% 1,000 ML IV SCH (09:19)
[2024-09-05] MEDS: POTASSIUM EFFERVESENT TAB 25 MEQ GT ONE (09:31)
[2024-09-05] MEDS: PANTOPRAZOLE 40 MG/10 ML VIAL INJ IV SCH (09:31)
[2024-09-05 10:09] VITALS: BP 142/86; PULSE 93; RESP 20; O2SAT 94
[2024-09-05] MEDS ORDERED: AMOX500T86 PO (10:33)
[2024-09-05 11:53] VITALS: PULSE 86; RESP 18; O2SAT 96
[2024-09-05] MEDS ORDERED: AMLO1TAB22 PO (12:16)
[2024-09-05 12:44] VITALS: BP 129/66; PULSE 68; RESP 16; TEMP 97.8; O2SAT 97
--- NOTE | 2024-09-05 13:49 | DVHDSRES ---
Discharge Summary Date of Admission Resident Creating Document: HAMZAH TAMAYO RESIDENT Sep 04, 2024 at 22:03 Date of Discharge: Sep 05, 2024 Admitting Diagnosis Intractable abdominal pain likely due to acute colitis, rule out acute cholecystitis/acute pancreatitis Labs/Diagnostic Data: Laboratory Results Test 09/05/24 06:44 09/04/24 19:01 09/04/24 08:37 White Blood Count 8.3 10^3/uL (4.4-10.8) Red Blood Count 4.17 10^6/uL (4.5-5.90) Hemoglobin 14.2 g/dL (13.5-17.5) Hematocrit 39.7 % (41.0-53.0) Mean Corpuscular Volume 95.2 fL (80.0-100.0) Mean Corpuscular Hemoglobin 34.0 pg (28.0-32.0) Mean Corpuscular Hemoglobin Concent 35.7 g/dL (32.0-36.0) Red Cell Distribution Width 12.8 % (11.8-14.3) Platelet Count 160 10^3/uL (140-450) Mean Platelet Volume 9.1 fL (6.9-10.8) Neutrophils (%) (Auto) 90.9 % (37.0-80.0) Lymphocytes (%) (Auto) 4.9 % (10.0-50.0) Monocytes (%) (Auto) 4.0 % (0.0-12.0) Eosinophils (%) (Auto) 0.1 % (0.0-7.0) Basophils (%) (Auto) 0.1 % (0.0-2.0) Neutrophils # (Auto) 7.5 10 ^3/uL (1.6-8.6) Lymphocytes # (Auto) 0.4 10 ^3/uL (0.4-5.4) Monocytes # (Auto) 0.3 10 ^3/uL (0-1.3) Eosinophils # (Auto) 0 10 ^3/uL (0-0.8) Basophils # (Auto) 0 10 ^3/uL (0-0.2) Nucleated Red Blood Cells 0.0 % Sodium Level 139 mmol/L (136-145) Potassium Level 3.3 mmol/L (3.5-5.1) Chloride Level 105 mmol/L (98-107) Carbon Dioxide Level 24 mmol/L (20-31) Anion Gap 10 (5-15) Blood Urea Nitrogen 9 mg/dL (9-23) Creatinine 0.82 mg/dL (0.700-1.30) Glomerular Filtration Rate Calc 109 mL/min (>90) BUN/Creatinine Ratio 11.0 (10.0-20.0) Serum Glucose 109 mg/dL (74-106) Calcium Level 9.2 mg/dL (8.7-10.4) Total Bilirubin 1.0 mg/dL (0.2-1.0) Aspartate Amino Transferase (AST) 13 U/L (13-40) Alanine Aminotransferase (ALT) 14 U/L (7-40) Alkaline Phosphatase 51 U/L (46-116) Total Protein 6.3 g/dL (5.7-8.2) Albumin 4.1 g/dL (3.2-4.8) Hemoglobin A1c 5.4 % A1C (<5.7) Triglycerides Level 71 mg/dL (< 150) Cholesterol Level 208 mg/dL (< 200) LDL Cholesterol 145 mg/dL (< 100) HDL Cholesterol 55 mg/dL (40-59) Lipase 59 U/L (12-53) Urine Color Light-yellow (Yellow) Urine Clarity Clear (Clear) Urine pH 5.5 (5.0-9.0) Urine Specific [place] 1.024 (1.001-1.035) Urine Protein Negative (Negative) Urine Ketones 1+ (Negative) Urine Blood Negative /uL (Negative) Urine Nitrite Negative (Negative) Urine Bilirubin Negative (Negative) Urine Urobilinogen Normal mg/dL (Negative) Urine Leukocyte Esterase Negative /uL (Negative) Urine RBC <1 /hpf (0 - 3) Urine Microscopic WBC 1 /HPF (0-3) Urine Squamous Epithelial Cells None seen /hpf (<5) Urine Bacteria None seen /hpf (None Seen) Urine Mucus Few (None Seen) Urine Glucose Normal mg/dL (Normal) Urine Opiates Screen Pos (NEGATIVE) Urine Fentanyl Screen Neg (NEGATIVE) Urine Barbiturates Screen Neg (NEGATIVE) Urine Phencyclidine Screen Neg (NEGATIVE) Urine Amphetamines Screen Neg (NEGATIVE) Urine Benzodiazepines Screen Neg (NEGATIVE) Urine Cocaine Screen Neg (NEGATIVE) Urine Cannabinoids Screen Pos (NEGATIVE) Other Laboratory Tests 09/05/24 06:44 Brief Hx & Hospital Course: HPI-This is a 49-year-old male with past medical history of hypertension who presented to the ED with chief complaint of acute abdominal pain. The patient states the pain started today at 12:30 p.m. He locates the pain in the epigastric region and right upper quadrant, the patient described the pain as a sharp pain rated as 10/10 on the pain scale which is intermittent in nature that comes and goes. The patient reports chills, cold sweats, shakiness and 3-4 episodes of diarrhea that started today. Patient denied fever, nausea or vomiting. The patient also reports a similar episode one month ago. Initial labs showed a WBC of 11.5, stable hemoglobin is 16.0, BNP was grossly unremarkable. Chest x-ray was grossly clear without evidence of clear consolidations at this time. Gallbladder ultrasound showed liver measuring 15.7 cm with no gallstones or dilated ducts. Gallbladder showed a negative ultrasound Day sign. We will order a CT scan of the abdomen and pelvis, per the patient on IV fluids, IV pantoprazole and admit the patient for further assessment and management. Hospital course-patient came with the hospital due to intractable abdominal pain and diarrhea. Patient was admitted to the hospital due to intractable abdominal pain likely due acute colitis. Initial labs showed a WBC of 11.5, stable hemoglobin is 16.0, BNP was grossly unremarkable. Chest x-ray was grossly clear without evidence of clear consolidations at this time. Gallbladder ultrasound showed liver measuring 15.7 cm with no gallstones or dilated ducts. Gallbladder showed a negative ultrasound Day sign. We will order a CT scan of the abdomen and pelvis. Ultrasound negative for acute cholecystitis. Patient was treated with IV antibiotic and pantoprazole and IV fluid. Patient's symptoms improving. Patient reported pain is much better today. Patient is adamant about going home today. Patient tolerated liquid diet well. Patient advised to continue liquid diet for next 7 days. Patient was also advised to follow up with the primary care physician in 1 week. Patient was being discharged home with Augmentin 500 mg p.o. b.i.d. for 7 days. Patient was hemodynamically stable on discharge. Diagnosis -Acute abdominal pain likely due to infectious colitis Possible gastroenteritis R/O acute pancreatitis Rule out acute cholecystitis R/O PUD Acute diarrhea likely due to acute colitis Primary hypertension Hyperlipidemia Leukocytosis likely due to acute colitis Mild hypokalemia replenished Substance abuse cannabinoids Discharge plan Continue Augmentin 500 mg p.o. b.i.d. for 7 days Continue liquid diet for 7 days Please follow up with the primary care physician in 1 week Please avoid constipation and spicy Operations or Procedures [address] [address] Ph: [phone] DIAGNOSTIC IMAGING Diagnostic Imaging Report : [id number] Signed PATIENT: BANDAR FINNEYT: [id number] UNIT: [id number] : 1975 LOC: ER ROOM / BED: / AGE / SEX: 49 / M ADM STATUS: REG ER SERVICE 184 ORDERING PHYSICIAN: EJ DAVIS MD PROCEDURE(s): GBUS - GALLBLADDER REASON: RUQ ABD PAIN ORDER NUMBER(s): [id number], ACCESSION NUMBER(s): [id number] INDICATION: RUQ ABD PAIN TECHNIQUE: Multiple real-time sonographic images of the abdomen were obtained. COMPARISON: None FINDINGS: The liver is homogenous in echogenicity. The liver measures 15.7 cm. No intrahepatic biliary ductal dilatation is noted. The gallbladder wall measures 0.2 cm and is unremarkable. No gallstones or sludge is seen. The common duct measures 0.35 cm and is unremarkable. No pericholecystic fluid is noted. Negative ultrasound Day's sign The right kidney measures 9.5 cm. No hydronephrosis. The pancreas is not well visualized due to obscuration from bowel gas. IMPRESSION: 1. Liver measures 15.7 cm. 2. No gallstones or dilated ducts. The gallbladder shows a negative ultrasound Day's sign ATED BY: KRISTINE PELAEZ Jr., DO DICTATED DATE/TIME: 09/04/241913 SIGNED BY: KRISTINE PELAEZ Jr., DO SIGNED DATE/TIME: 09/04/241913 CC: [facility] [id number] [place] [id number] Ph: [phone] DIAGNOSTIC IMAGING Diagnostic Imaging Report : [id number] Signed PATIENT: BANDAR FINNEYT: [id number] UNIT: [id number] : 1975 LOC: ER ROOM / BED: / AGE / SEX: 49 / M ADM STATUS: REG ER SERVICE 19 ORDERING PHYSICIAN: EJ DAVIS MD PROCEDURE(s): CXRP - CHEST PORTABLE REASON: epigastric pain ORDER NUMBER(s): [id number], ACCESSION NUMBER(s): [id number] CHEST RADIOGRAPH Indication: epigastric pain Technique: Single frontal view of the chest was obtained COMPARISON: XY CHEST XRAY 1 VIEW on DOS: 07/02/24 FINDINGS: Lines and Tubes: None Lungs: Clear Pleura: No effusion. No pneumothorax. Cardiomediastinal contours: Unremarkable Bones: Unremarkable IMPRESSION: No abnormality. ATED BY: RAKESH SALINAS MD DICTATED DATE/TIME: 09/04/242039 SIGNED BY: RAKESH SALINAS MD SIGNED DATE/TIME: 09/04/242039 CC: [place] [id number] Ph: [phone] DIAGNOSTIC IMAGING Diagnostic Imaging Report : [id number] Signed PATIENT: BANDAR FINNEYT: [id number] UNIT: [id number] : 1975 LOC: ER ROOM / BED: / AGE / SEX: 49 / M ADM STATUS: REG ER SERVICE 02 ORDERING PHYSICIAN: HAMZAH TAMAYO PROCEDURE(s): ABPL - CT AB PEL WO CON-NO ORAL OR IV REASON: Acute abdominal pain ORDER NUMBER(s): [id number], ACCESSION NUMBER(s): [id number] Exam: CT CT AB PEL WO CON-NO ORAL OR IV History: Acute abdominal pain Comparison Study: CT CT AB PEL WO CON-NO ORAL OR IV on DOS: 07/02/24 Technique: Multidetector spiral CT of the abdomen was performed from lung bases to pubic symphysis. Imaging was performed without IV contrast. Axial, coronal and sagittal multiplanar reformats were obtained from the axial data set by the technologist. Radiation Dose : 1. Abdomen/Pelvis: CTDIvol 8.21 mGy, DLP 444.43 mGy*cm. Findings: Evaluation of solid organs is limited due to lack of intravenous contrast use. Lung Bases: No acute or significant lung base finding. Normal heart size. No pleural or pericardial effusion. Liver: The liver is normal in size. No focal lesions. Gallbladder and Biliary Tree: Unremarkable Spleen: Unremarkable Pancreas: The pancreas is grossly normal in appearance. Adrenal Glands: Unremarkable Kidneys: Kidneys are grossly normal without calculi or hydronephrosis. Bladder: Grossly unremarkable for degree of distention. Bowel: The stomach is grossly normal in appearance. Infectious / inflammatory colitis involving the sigmoid colon . The appendix is not visualized; however, no secondary findings of acute appendicitis identified. Ascites: Absent Lymphadenopathy: No mesenteric, retroperitoneal or periportal lymphadenopathy. Abdominal Wall and Mesentery: Unremarkable. Vasculature: The visualized abdominal aorta is normal in size and caliber. Evaluation of abdominal and pelvic vessels is limited due to lack of intravenous contrast. Pelvic Organs: Unremarkable Musculoskeletal: No aggressive focal bony lesions, acute fractures or dislocation. IMPRESSION: 1. Infectious / inflammatory colitis involving the sigmoid colon . Radiation optimization: All CT scans at this facility use at least one of these dose optimization techniques: automated exposure control mA and/or kV adjustment per patient size (includes targeted exams where dose is matched to clinical indication) or iterative reconstruction. ATED BY: GUERITA NAJERA MD DICTATED DATE/TIME: 09/04/242236 SIGNED BY: GUERITA NAJERA MD SIGNED DATE/TIME: 09/04/242236 CC: Condition at Discharge: Stable Final Diagnosis/Problems List -Acute abdominal pain likely due to infectious colitis Possible gastroenteritis R/O acute pancreatitis Rule out acute cholecystitis R/O PUD Acute diarrhea likely due to acute colitis Primary hypertension Hyperlipidemia Leukocytosis likely due to acute colitis Mild hypokalemia replenished Substance abuse cannabinoids Discharge Disposition: Home Discharge Instruct/Medications Follow Up/Referral: Continue liquid diet for 7 days Please follow up with the primary care physician in 1 week Please avoid constipation and spicy Medications: Continue Augmentin 500 mg p.o. b.i.d. for 7 days Continue liquid diet for 7 days Discharge Statement: "Patient was advised to return to the ER or call 911 if any headaches, dizziness, shortness of breath, chest pain, abdominal pain, bleeding, fevers, or worsening of medical condition. Patient was counseled about treatment plan, medications, possible side effects, patientverbalized understanding. All questions were answered to the best of my ability. This discharge took greater then 30 minutes in planning, reviewing documentation, counseling the patient, and discussing with other team members." ASSESSMENT ASSESSMENT Assessment CRISTAL TRAORE RESIDENT Sep 05, 2024 13:49
[2024-09-05] MEDS ORDERED: PANT40T PO (13:50)
[2024-09-05 14:37] VITALS: BP 129/66; PULSE 68; RESP 16; TEMP 97.8; O2SAT 97
== END 2024-09-05 15:46 | disposition home or self-care (01) | DRG 391 ==
LOC: ER 18:26 → OVERFLOW 22:03
PROVIDERS: ADMIT Student in an Organized Health Care Education/Training Program; ATTEND Student in an Organized Health Care Education/Training Program
DX: A09 Infectious gastroenteritis and colitis, unspecified (principal); K85.90 Acute pancreatitis without necrosis or infection, unspecified; K81.0 Acute cholecystitis; I10 Essential (primary) hypertension; E87.6 Hypokalemia; F12.10 Cannabis abuse, uncomplicated; K27.9 Peptic ulcer, site unspecified, unspecified as acute or chronic, without hemorrhage or perforation; E78.5 Hyperlipidemia, unspecified; Z79.899 Other long term (current) drug therapy
CPT/HCPCS: 36415; 71045; 74176; 76705; 80053; 80061; 80307; 81001; 83036; 83690; 85025; 96361; 96374; 96375; 99291; G0378; J2405; J2470; J3490